=== PATIENT | male | born 1990 | race Hispanic/Latino ===

== ENCOUNTER 2018-02-11 10:22 | Emergency (ER) | payer OTHER ==
[2018-02-11 10:27] VITALS: BP 114/73; PULSE 76; RESP 18; TEMP 98.5; O2SAT 98
[2018-02-11 11:20] LABS: PROTHROMBIN TIME 11.3 Seconds (9.8-13.1)
[2018-02-11 11:23] LABS: PARTIAL THROMBOPLASTIN TIME 34.6 Seconds (25.6-37.1)
[2018-02-11 11:26] LABS: ALB/GLOB RATIO 1.4 (1.0-2.1); ALBUMIN 4.8 g/dL (3.5-5.0); ALT/SGPT 20 U/L (21-72); AST/SGOT 21 U/L (17-59); BLOOD UREA NITROGEN 14 mg/dl (9-20); CALCIUM 9.7 mg/dL (8.4-10.2); GFR AFRICAN-AMERICAN > 60; GFR NON-AFRICAN AMERICAN > 60
[2018-02-11 11:29] LABS: BASO # 0.1 K/uL (0.0-0.2); BASO % 1.2 % (0.0-2.0); EOS # 0.1 K/uL (0.0-0.7); EOS % 2.1 % (0.0-4.0); HEMOGLOBIN 14.5 g/dL (12.0-18.0); LYMPH # 1.7 K/uL (1.0-4.3); LYMPH % 34.9 % (20.0-40.0); MEAN CELL VOLUME 83.7 fl (80.0-94.0); MEAN CORPUSCULAR HGB CONC 33.5 g/dL (33.0-37.0); MEAN PLATELET VOLUME 8.1 fl (7.2-11.7); MONO # 0.4 K/uL (0.0-0.8); MONO % 7.8 % (0.0-10.0); NEUT # 2.6 K/uL (1.8-7.0); NRBC % 0.2 % (0.0-0.0); RBC 5.19 Mil/uL (4.40-5.90); RED CELL DISTRIBUTION WIDTH 13.4 % (11.5-14.5); WHITE BLOOD COUNT 4.9 K/uL (4.8-10.8)
--- NOTE | 2018-02-11 12:24 | US ---
Date of service: 02/11/2018 HISTORY: L leg pain, r/o DVT . PRIORS: None. FINDINGS: 2-D, color and duplex Doppler analysis of the lower extremity venous circulation using routine protocol from the femoral veins through the popliteal veins. Venous compressibility: Normal. Flow and augmentation patterns: Normal. Visualized veins upper third of calf: Normal. Sanders cyst: None. IMPRESSION: No sonographic or Doppler evidence for DVT in left lower extremity.
--- NOTE | 2018-02-11 12:49 | ED PDOC ---
Lower Extremity Pain/Injury Time Seen by Provider: 02/11/18 10:34 Chief Complaint (Nursing): Lower Extremity Problem/Injury Chief Complaint (Provider): Lower Extremity Problem/Injury History Per: Patient History/Exam Limitations: no limitations Additional Complaint(s): 27 years old male presents to the ED for evaluation of left leg pain, starting from the to the posterior aspect of the left thigh radiating to rest of the left leg. Patient reports pain started when he was in physical therapy a few days ago and was advised by therapist and nurse of his surgeon to come to ER to check for blood clot in the left leg. He states he had spinal fusion on 12/10/17 that was done by [facility] by Dr. Callahan. 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 Patient denies any fever, chills or history of IV drug abuse. Otherwise: (-) paresthesias, (-) weakness, (-) acute bowel or bladder dysfunction. Past Medical History Reviewed: Historical Data, Nursing Documentation, Vital Signs Vital Signs: Last Vital Signs Temp 98.5 F 02/11/18 10:26 Pulse 76 02/11/18 10:26 Resp 18 02/11/18 10:26 BP 114/73 02/11/18 10:26 Pulse Ox 98 02/11/18 10:26 - Medical History PMH: No Chronic Diseases - Surgical History Other surgeries: Spinal fusion - Family History Family History: States: Unknown Family Hx - Social History Current smoker - smoking cessation education provided: No Alcohol: Social Drugs: Denies - Immunization History Hx Tetanus Toxoid Vaccination: No Hx Influenza Vaccination: No - Allergies Allergies/Adverse Reactions: Allergies Allergy/AdvReac Type Severity Reaction Status Date / Time No Known Allergies Allergy Verified 02/11/18 10:45 Review of Systems ROS Statement: Except As Marked, All Systems Reviewed And Found Negative Constitutional: Negative for: Fever, Chills Musculoskeletal: Positive for: Leg Pain (Left) Physical Exam - Physical Exam Comments: GENERAL APPEARANCE: Patient is awake, alert, oriented x 3, in no acute distress. SKIN: Warm, dry; (-) cyanosis. EYES: (-) conjunctival pallor. ENMT: Mucous membranes moist. NECK: (-) tenderness, (-) stiffness, (-) lymphadenopathy. CHEST AND RESPIRATORY: (-) rales, (-) rhonchi, (-) wheezes; breath sounds equal bilaterally. HEART AND CARDIOVASCULAR: (-) irregularity; (-) murmur, (-) gallop. ABDOMEN AND GI: Soft; (-) tenderness; (-) palpable mass. BACK: (+) Healed vertical surgical scar to lumbar spine, (-) tenderness, (-) spasm, (-) direct bony tenderness, (-) deformity. Straight leg raising (-) bilaterally. EXTREMITIES: (-) tenderness or edema, (+) FROM, (-) deformity. Distal pulses good bilaterally. NEURO AND PSYCH: Mental status as above. Intact sensation bilaterally; normal strength in extension of the knees, plantar and dorsiflexion of the toes. - Laboratory Results Result Diagrams: 02/11/18 11:05 02/11/18 11:05 - ECG O2 Sat by Pulse Oximetry: 98 (RA) Pulse Ox Interpretation: Normal Medical Decision Making Medical Decision Making: Time: 1102 Initial Impression: Initial Plan: --Lumbar spine MRI w/o contrast --Ativan 0.5 mg IVP --CBC --PTT --PT --Ativan 0.5 mg IVP --US Duplex Lower Extremity Labs reviewed and are wnl. [address] Extremity US FINDINGS: 2-D, color and duplex Doppler analysis of the lower extremity venous circulation using routine protocol from the femoral veins through the popliteal veins. Venous compressibility: Normal. Flow and augmentation patterns: Normal. Visualized veins upper third of calf: Normal. Sanders cyst: None. IMPRESSION: No sonographic or Doppler evidence for DVT in left lower extremity. MRI L spine : FINDINGS: Stabilized limited grade 1 spondylolisthesis at L5-S1 is noted. Interval signal dephasing is appreciated at L5-S1 intervertebral disc space and surrounding endplates status post intervertebral spinal fusion with posterior fusion hardware in position by transpedicular screws at L5 and S1 bilaterally transfixed by interconnecting rods bilaterally. Postoperative paraspinal soft tissue changes are identified with remaining posterior paraspinal soft tissues unremarkable. Prevertebral soft tissues are unremarkable as well. The the mid inferior conus medullaris are identified and appear unremarkable terminating at L1. No suspicious matter signal changes are identified throughout. Limitations at L5 and S1 are noted on the basis of fusion hardware. Note is made of what appears to be of moderately distended urinary bladder. T12-L1: No disc herniation, spinal canal stenosis or neural foraminal narrowing. L1-2: No disc herniation, spinal canal stenosis or neural foraminal narrowing. L2-3: No disc herniation, spinal canal stenosis or neural foraminal narrowing. L3-4: No disc herniation, spinal canal stenosis or neural foraminal narrowing. L4-5: No disc herniation, spinal canal stenosis or neural foraminal narrowing. L5-S1: Signal dephasing from transpedicular screws bilaterally obscures the bilateral L5-S1 foramina particularly at the left side. This affects the upper left neural foramen as well. Trace left anterior epidural fluid is difficult to exclude measuring 0.9 x 0.6 cm best seen image 35 series 7 (axial T2 weighted sequence). Follow-up contrast MRI is advised for added characterization of this finding. Limited edema of the proximal left L5 nerve root is questioned. No definitive suspicious right epidural findings. Posterior epidural spaces unremarkable diffusely. OTHER FINDINGS: None. IMPRESSION: 1. Limited grade 1 spondylolisthesis L5-S1 stabilized by at bilateral transpedicular screws at L5 and S1 as well as intervertebral fusion device. Postop changes seen the posterior paraspinal soft tissues. 0.9 cm fluid collection is not completely excluded at the left paracentral/lateral anterior epidural space at L5-S1 and follow-up contrast MRI is recommended for added characterization. A small abscess is not completely excluded. Edema is questioned at the proximal left L5 nerve root. 2. The remainder of the lumbar spine is stable and unremarkable appearing including central canal and neural foramina and from L1-2 to L4-5 inclusively. 1400 Call placed to the patient's orthopedic surgeon Dr. Callahan at [facility] [phone], lab, US, MRI results case discussed with his nurse Naomi, who will contact Dr. Callahan regarding MRI findings. On reevaluation, patient reports no other complaints at this time, denies any bowel bladder incontinence, paresthesia and has no additional complaints. Repeat neuro exam shows no acute focal findings, patient is able to ambulate with a steady gait his motor and sensory function is intact. [address] Callahan's office at [facility] called back, she states that Dr. Callahan believes that the fluid seen in the MRI is likely postoperative changes and is not highly concerned for anything acute and the patient can follow-up in his office in the next 1-2 weeks with copies of his MRI. Patient notified of plan for discharge and for outpatient follow-up which he is comfortable with. Patient states he will follow-up with Dr. Callahan. Scribe Attestation: Documented by La Matthews, acting as a scribe for Trisha Cevallos PA-C. Provider Scribe Attestation: All medical record entries made by the Scribe were at my direction and personally dictated by me. I have reviewed the chart and agree that the record accurately reflects my personal performance of the history, physical exam, medical decision making, and the department course for this patient. I have also personally directed, reviewed, and agree with the discharge instructions and disposition. Disposition - Clinical Impression Clinical Impression: Left leg pain, S/P spinal fusion - Patient ED Disposition Is Patient to be Admitted: No Counseled Patient/Family Regarding: Studies Performed, Diagnosis, Need For Followup - Disposition Disposition: Routine/Home Disposition Time: 15:00 Condition: STABLE Additional Instructions: Thank you for letting us take care of you today. You were treated for left leg pain, consider radiculopathy. The emergency medical care you received today was directed at your acute symptoms. Return to the Emergency Department if your symptoms worsen, do not improve, or if you have any other problems. Please contact your orthopedic doctor in 1 week for re-evaluation and follow up. Bring any paperwork you were given at discharge with you along with any medications you are taking to your follow up visit. Our treatment cannot replace ongoing medical care by a primary care provider (PCP) outside of the emergency department. Thank you for allowing the [facility] team to be part of your care today. Instructions: Radiculopathy Forms: [place] ([place]), [facility] ED School/Work Excuse - PA / CANCER SPEC / Resident Statement MD/DO has reviewed & agrees with the documentation as recorded.
--- NOTE | 2018-02-11 13:21 | MRI ---
Date of service: 02/11/2018 PROCEDURE: MR LUMBAR SPINE WITHOUT CONTRAST HISTORY: L leg pain, s/p spinal fusion 12/10/17 COMPARISON: None available. TECHNIQUE: Multiecho multiplanar sequences were performed through the lumbar spine without the use of intravenous contrast. FINDINGS: Stabilized limited grade 1 spondylolisthesis at L5-S1 is noted. Interval signal dephasing is appreciated at L5-S1 intervertebral disc space and surrounding endplates status post intervertebral spinal fusion with posterior fusion hardware in position by transpedicular screws at L5 and S1 bilaterally transfixed by interconnecting rods bilaterally. Postoperative paraspinal soft tissue changes are identified with remaining posterior paraspinal soft tissues unremarkable. Prevertebral soft tissues are unremarkable as well. The the mid inferior conus medullaris are identified and appear unremarkable terminating at L1. No suspicious matter signal changes are identified throughout. Limitations at L5 and S1 are noted on the basis of fusion hardware. Note is made of what appears to be of moderately distended urinary bladder. T12-L1: No disc herniation, spinal canal stenosis or neural foraminal narrowing. L1-2: No disc herniation, spinal canal stenosis or neural foraminal narrowing. L2-3: No disc herniation, spinal canal stenosis or neural foraminal narrowing. L3-4: No disc herniation, spinal canal stenosis or neural foraminal narrowing. L4-5: No disc herniation, spinal canal stenosis or neural foraminal narrowing. L5-S1: Signal dephasing from transpedicular screws bilaterally obscures the bilateral L5-S1 foramina particularly at the left side. This affects the upper left neural foramen as well. Trace left anterior epidural fluid is difficult to exclude measuring 0.9 x 0.6 cm best seen image 35 series 7 (axial T2 weighted sequence). Follow-up contrast MRI is advised for added characterization of this finding. Limited edema of the proximal left L5 nerve root is questioned. No definitive suspicious right epidural findings. Posterior epidural spaces unremarkable diffusely. OTHER FINDINGS: None. IMPRESSION: 1. Limited grade 1 spondylolisthesis L5-S1 stabilized by at bilateral transpedicular screws at L5 and S1 as well as intervertebral fusion device. Postop changes seen the posterior paraspinal soft tissues. 0.9 cm fluid collection is not completely excluded at the left paracentral/lateral anterior epidural space at L5-S1 and follow-up contrast MRI is recommended for added characterization. A small abscess is not completely excluded. Edema is questioned at the proximal left L5 nerve root. 2. The remainder of the lumbar spine is stable and unremarkable appearing including central canal and neural foramina and from L1-2 to L4-5 inclusively.
== END 2018-02-11 16:00 | disposition home or self-care (01) ==
LOC: H.ER 10:22
DX: M79.605 Pain in left leg (principal); M43.16 Spondylolisthesis, lumbar region
CPT/HCPCS: 72148; 80053; 85025; 85610; 85730; 93971; 96374; 99284; J2060